=== PATIENT | male | born 1960 | race Caucasian/White ===

== ENCOUNTER → 2023-03-13 | Outpatient (CLI) | payer MEDICAID ==
[2023-03-13 13:23] LABS: ALBUMIN 3.6 G/DL (3.2-5.2); ALKALINE PHOSPHATASE 79 U/L (46-116); ALT/SGPT 22 U/L (7.0-40); AST/SGOT 12 U/L (<34); BILIRUBIN,TOTAL 0.6 MG/DL (0.3-1.2); BLOOD UREA NITROGEN 14 MG/DL (9-23); CALCIUM LEVEL 9.4 MG/DL (8.3-10.6); CARBON DIOXIDE LEVEL 26 MMOL/L (20-31); CHLORIDE LEVEL 105 MMOL/L (98-107); CREATININE FOR GFR 1.11 MG/DL (0.70-1.30); GLOMERULAR FILTRATION RATE > 60.0 (>49); GLUCOSE, FASTING 85 MG/DL (74-106); POTASSIUM SERUM 4.4 MMOL/L (3.5-5.1); SODIUM LEVEL 139 MMOL/L (136-145); TOTAL PROTEIN 7.1 G/DL (5.7-8.2)
[2023-03-13 13:27] LABS: HEPATITIS B SURFACE ANTIBODY NEGATIVE (POSITIVE)
[2023-03-13 13:40] LABS: HEPATITIS B SURFACE ANTIGEN NEGATIVE (NEGATIVE)
== END ==
LOC: M PLALAB 11:10
PROVIDERS: ATTEND Internal Medicine Infectious Disease
DX: B20 Human immunodeficiency virus [HIV] disease (principal)

== ENCOUNTER → 2023-07-06 | Outpatient (CLI) | payer BC, MEDICAID ==
[~2023-07-06] MED LIST: BIKT1TAB PO; FINA5TAB2 PO; LOSA50TA28 PO; METO1TAB87 PO; SILD50TA2 PO; SOFO1TAB PO; TAMS1CAP17 PO
== END ==
LOC: M ONCR 08:28
PROVIDERS: ATTEND General Practice
DX: C21.0 Malignant neoplasm of anus, unspecified (principal); R97.20 Elevated prostate specific antigen [PSA]; F17.210 Nicotine dependence, cigarettes, uncomplicated; B20 Human immunodeficiency virus [HIV] disease; Z71.2 Person consulting for explanation of examination or test findings; Z79.899 Other long term (current) drug therapy; Z88.8 Allergy status to other drugs, medicaments and biological substances

== ENCOUNTER 2023-07-30 10:22 | Outpatient (RCR) | payer BC, MEDICAID ==
[~2023-07-30 10:22] MED LIST changes: -LIDOCAINE 1% MDV 20ML VIAL As Ordered ONE; -LIDOCAINE W/EPINEPHRINE 1% 20ML VIAL As Ordered ONE; -MIDAZOLAM INJ 2MG/2ML VIAL As Ordered ONE; -NS 1,000 ML IV SCH; -ceFAZolin 2 GM/D5W 50 ML IV BAG As Ordered ONE; -ceFAZolin SOD 2 GM in IV 1 EA IV ONE; -fentaNYL 100 MCG/2 ML INJECTION As Ordered ONE
== END 2023-08-26 ==
LOC: M ONCR 10:22
PROVIDERS: ATTEND General Practice
DX: Z51.0 Encounter for antineoplastic radiation therapy (principal); C21.0 Malignant neoplasm of anus, unspecified

== ENCOUNTER → 2023-07-30 | Outpatient (CLI) | payer BC, MEDICAID ==
[~2023-07-30] VITALS: Ht 172.7 cm; Wt 73.0 kg
[~2023-07-30] MED LIST changes: +LIDOCAINE 1% MDV 20ML VIAL As Ordered ONE; +LIDOCAINE W/EPINEPHRINE 1% 20ML VIAL As Ordered ONE; +MIDAZOLAM INJ 2MG/2ML VIAL As Ordered ONE; +NS 1,000 ML IV SCH; +ceFAZolin 2 GM/D5W 50 ML IV BAG As Ordered ONE; +ceFAZolin SOD 2 GM in IV 1 EA IV ONE; +fentaNYL 100 MCG/2 ML INJECTION As Ordered ONE
[2023-07-30 13:05] VITALS: TEMP 98.1
[2023-07-30 15:50] VITALS: BP 112/69; O2SAT 97
== END ==
LOC: M IRPRO 12:51
PROVIDERS: ATTEND Internal Medicine Medical Oncology
DX: C21.0 Malignant neoplasm of anus, unspecified (principal)
CPT/HCPCS: 36571; 99152; 99153; J0690; J2250; J3010

== ENCOUNTER → 2023-09-11 | Outpatient (CLI) | payer BC, MEDICAID ==
[~2023-09-11] MED LIST changes: +AMOX875T2 PO; +ONDA-84 PO; +PROC10TA5 PO
== END ==
LOC: M ONCM 08:25
PROVIDERS: ATTEND Dietitian, Registered
DX: C21.0 Malignant neoplasm of anus, unspecified (principal); Z68.22 Body mass index [BMI] 22.0-22.9, adult; Z71.3 Dietary counseling and surveillance

== ENCOUNTER → 2023-09-20 | Outpatient (CLI) | payer BC, MEDICAID ==
[2023-09-20 14:38] LABS: ALKALINE PHOSPHATASE 79 U/L (46-116); ALT/SGPT 17 U/L (7.0-40); AST/SGOT 15 U/L (<34); BILIRUBIN,TOTAL 0.5 MG/DL (0.3-1.2); BLOOD UREA NITROGEN 22 MG/DL (9-23); CALCIUM LEVEL 8.7 MG/DL (8.3-10.6); CARBON DIOXIDE LEVEL 30 MMOL/L (20-31); CHLORIDE LEVEL 106 MMOL/L (98-107); CREATININE FOR GFR 1.03 MG/DL (0.70-1.30); GLOMERULAR FILTRATION RATE > 60.0 (>49); GLUCOSE, FASTING 100 MG/DL (74-106); POTASSIUM SERUM 4.2 MMOL/L (3.5-5.1); SODIUM LEVEL 141 MMOL/L (136-145); TOTAL PROTEIN 6.1 G/DL (5.7-8.2)
[2023-09-20 14:43] LABS: HEPATITIS B SURFACE ANTIBODY NEGATIVE (POSITIVE)
[2023-09-21 19:13] LABS: % CD8 Pos Lymph 33.3 % (12.0-35.5); ABS Eosinophils 0.1 x10E3/uL (0.0-0.4); ABS Lymphs 0.5 x10E3/uL (0.7-3.1); ABS Monocytes 0.3 x10E3/uL (0.1-0.9); ABS Neutophils 1.6 x10E3/uL (1.4-7.0); Abs CD4 Helper 220 /uL (359-1519); Abs CD8 Suppres 167 /uL (109-897); CD4/CD8 Ratio 1.32 (0.92-3.72); Eosinophils 4 % (Not Estab.); HCT 39.5 % (37.5-51.0); HEPATITIS C QUANTITATION HCV Not Detected IU/mL (.); HGB 12.9 g/dL (13.0-17.7); HIV-1 RNA PCR QUANT 2 LC550285 <20 copies/mL (.); Immature Grans 0 % (Not Estab.); Lymphocytes 21 % (Not Estab.); MCH 26.5 pg (26.6-33.0); MCHC 32.7 g/dL (31.5-35.7); MCV 81 fL (79-97); Monocytes 11 % (Not Estab.); Neutrophils 63 % (Not Estab.); Platelets 135 x10E3/uL (150-450); RBC 4.87 x10E6/uL (4.14-5.80); RDW 13.4 % (11.6-15.4); TESTOSTERONE FREE (DIRECT) 4.8 pg/mL (6.6-18.1); WBC 2.6 x10E3/uL (3.4-10.8)
== END ==
LOC: M PLALAB 09:55
PROVIDERS: ATTEND Internal Medicine Infectious Disease
DX: N52.9 Male erectile dysfunction, unspecified (principal)

== ENCOUNTER → 2023-09-26 | Outpatient (RCR) | payer BC, MEDICAID | LOC: M ONCR 08-28 15:32 | PROVIDERS: ATTEND General Practice | DX: Z51.0 Encounter for antineoplastic radiation therapy (principal); C21.0 Malignant neoplasm of anus, unspecified ==

== ENCOUNTER → 2023-10-09 | Outpatient (CLI) | payer BC, MEDICAID ==
[~2023-10-09] MED LIST changes: +BUSP5TA PO; +CITA20TA6 PO; +REGL10TA6 PO
== END ==
LOC: M ONCM 11:54
PROVIDERS: ATTEND Dietitian, Registered
DX: C21.0 Malignant neoplasm of anus, unspecified (principal); Z71.3 Dietary counseling and surveillance; Z68.23 Body mass index [BMI] 23.0-23.9, adult

== ENCOUNTER 2023-10-19 20:11 | Emergency (ER) | payer BC, MEDICAID ==
[~2023-10-19] VITALS: Ht 172.7 cm; Wt 67.3 kg
[~2023-10-19 20:11] MED LIST changes: +LIDO15SO PO; +NYST-38 PO; +NYST100085 TOP; +TRAM50TA2 PO
[2023-10-19] MEDS: NS 1,000 ML IV ONE (21:09)
[2023-10-19] MEDS: ACETAMINOPHEN TAB 650MG DOSE (2X325MG) PO ONE (21:09)
[2023-10-19 21:16] LABS: BASO % 0.4 % (0.0-1.0); EOS # 0.2 10^3/uL (0.0-0.5); EOS % 7.2 % (0.0-3.0); HEMATOCRIT 33.2 % (42.0-52.0); HEMOGLOBIN 11.3 g/dl (13.5-17.5); LYMPH # 0.1 10^3/uL (1.5-5.0); LYMPH % 4.9 % (24.0-44.0); MEAN CORPUSCULAR HEMOGLOBIN 27.4 pg (27.0-33.0); MEAN CORPUSCULAR VOLUME 80.6 fl (80.0-96.0); MONO # 0.4 10^3/uL (0.0-0.8); MONO % 16.7 % (2.0-8.0); NEUTROPHILS # 1.9 10^3/uL (1.5-8.5); NEUTROPHILS % 70.4 % (36.0-66.0); PLATELET COUNT, AUTOMATED 109 10^3/uL (150-450); RED BLOOD COUNT 4.12 10^6/uL (4.30-6.10); WHITE BLOOD COUNT 2.6 10^3/uL (4.0-10.0)
[2023-10-19 21:36] LABS: LIPASE 32 U/L (12-53)
[2023-10-19 21:38] LABS: ALBUMIN 2.8 G/DL (3.2-5.2); ALKALINE PHOSPHATASE 69 U/L (46-116); ALT/SGPT 16 U/L (7.0-40); AST/SGOT 14 U/L (<34); BILIRUBIN,DIRECT 0.3 MG/DL (<0.4); BILIRUBIN,TOTAL 0.8 MG/DL (0.3-1.2); BLOOD UREA NITROGEN 10 MG/DL (9-23); CARBON DIOXIDE LEVEL 25 MMOL/L (20-31); CHLORIDE LEVEL 102 MMOL/L (98-107); GLOMERULAR FILTRATION RATE > 60.0 (>49); GLUCOSE, FASTING 104 MG/DL (74-106); POTASSIUM SERUM 3.8 MMOL/L (3.5-5.1); SODIUM LEVEL 132 MMOL/L (136-145); TOTAL PROTEIN 5.8 G/DL (5.7-8.2)
[2023-10-20 00:56] VITALS: BP 124/78; TEMP 98.8; O2SAT 98
[2023-10-20] MEDS ORDERED: CIPR-249 PO (00:57)
[2023-10-20] MEDS: CIPROFLOXACIN 500MG TABLET PO ONE (01:01)
== END 2023-10-20 01:06 | disposition home or self-care (01) ==
LOC: M ED 20:11
DX: A04.5 Campylobacter enteritis (principal); R50.9 Fever, unspecified; I10 Essential (primary) hypertension; B20 Human immunodeficiency virus [HIV] disease; B17.9 Acute viral hepatitis, unspecified; F32.A Depression, unspecified; Z88.8 Allergy status to other drugs, medicaments and biological substances; Z79.899 Other long term (current) drug therapy

== ENCOUNTER 2023-10-22 08:59 | Outpatient (RCR) | payer BC, MEDICAID ==
[2023-10-16] MEDS: dexAMETHasone 20MG/5ML VIAL IV ONE (09:53)
[2023-10-16] MEDS: NS 1,000 ML IV ONE ×2 (09:53→10:51)
[~2023-10-22 08:59] MED LIST changes: +CIPR-249 PO
== END 2023-10-25 ==
LOC: M ONCR 08:59
PROVIDERS: ATTEND General Practice
DX: Z51.0 Encounter for antineoplastic radiation therapy (principal); C21.0 Malignant neoplasm of anus, unspecified
CPT/HCPCS: 77336; 77386; J1100

== ENCOUNTER → 2023-11-13 | Outpatient (CLI) | payer BC, MEDICAID ==
[~2023-11-13] MED LIST changes: -LIDO15SO PO; +LIDO15SO8 PO
== END ==
LOC: M ONCR 09:08
PROVIDERS: ATTEND General Practice
DX: C21.0 Malignant neoplasm of anus, unspecified (principal)

== ENCOUNTER → 2024-01-16 | Outpatient (CLI) | payer BC, MEDICAID ==
[~2024-01-16] MED LIST changes: +GASTROGRAFIN SOLUTION 30ML As Ordered ONE; +ISOVUE-370 76% 100ML VIAL As Ordered ONE
== END ==
LOC: M RAD 08:21
PROVIDERS: ATTEND General Practice
DX: C21.0 Malignant neoplasm of anus, unspecified (principal)

== ENCOUNTER → 2024-01-23 | Outpatient (CLI) | payer BC, MEDICAID ==
[~2024-01-23] MED LIST changes: +BACTDSTA PO; -GASTROGRAFIN SOLUTION 30ML As Ordered ONE; -ISOVUE-370 76% 100ML VIAL As Ordered ONE
== END ==
LOC: M ONCR 08:58
PROVIDERS: ATTEND General Practice
DX: C21.0 Malignant neoplasm of anus, unspecified (principal); N39.41 Urge incontinence; R39.12 Poor urinary stream; N40.1 Benign prostatic hyperplasia with lower urinary tract symptoms; L03.011 Cellulitis of right finger; B20 Human immunodeficiency virus [HIV] disease; Z71.2 Person consulting for explanation of examination or test findings; Z79.899 Other long term (current) drug therapy; Z87.891 Personal history of nicotine dependence; Z88.8 Allergy status to other drugs, medicaments and biological substances; Z92.21 Personal history of antineoplastic chemotherapy; Z92.3 Personal history of irradiation

== ENCOUNTER → 2024-02-19 | Outpatient (CLI) | payer BC, MEDICAID ==
[2024-02-20 10:11] LABS: % CD4+ LYMPHS 23.6 % (30.8-58.5); ABSOLUTE CD4 HELPER 165 /uL (359-1519); BASOPHILS 1 % (Not Estab.); BASOPHILS ABSOLUTE 0.1 x10E3/uL (0.0-0.2); EOSINOPHILS 4 % (Not Estab.); EOSINOPHILS ABSOLUTE 0.2 x10E3/uL (0.0-0.4); HCT 36.7 % (37.5-51.0); HGB 11.9 g/dL (13.0-17.7); LYMPHOCYTES 13 % (Not Estab.); LYMPHOCYTES ABSOLUTE 0.7 x10E3/uL (0.7-3.1); MCH 25.7 pg (26.6-33.0); MCHC 32.4 g/dL (31.5-35.7); MCV 79 fL (79-97); MONOCYTES 15 % (Not Estab.); MONOCYTES ABSOLUTE 0.8 x10E3/uL (0.1-0.9); NEUTROPHILS 67 % (Not Estab.); NEUTROPHILS ABSOLUTE 3.6 x10E3/uL (1.4-7.0); PLT 226 x10E3/uL (150-450); RBC 4.63 x10E6/uL (4.14-5.80); RDW 13.8 % (11.6-15.4); WBC 5.3 x10E3/uL (3.4-10.8)
[2024-02-20 12:53] LABS: HCV RNA QUANTITATION <15 NOT DETECTED IU/mL (NOT DETECTED); HCV RNA log10 <1.18 NOT DETECTED Log IU/mL (NOT DETECTED)
[2024-02-20 14:27] LABS: HIV-1 RNA PCR QUANT 2 NOT DETECTED copies/mL (NOT DETECTED); HIV-1 RNA PCR QUANT 3 NOT DETECTED (NOT DETECTED)
== END ==
LOC: M PLALAB 09:34
PROVIDERS: ATTEND Internal Medicine Infectious Disease
DX: B20 Human immunodeficiency virus [HIV] disease (principal)

== ENCOUNTER → 2024-03-20 | Outpatient (CLI) | payer BC, MEDICAID ==
[~2024-03-20] MED LIST changes: +KETOROLAC 30 MG/ML 1ML VIAL As Ordered ONE; +LIDOCAINE 1% MDV 20ML VIAL As Ordered ONE; +MIDAZOLAM INJ 2MG/2ML VIAL As Ordered ONE; +NS 1,000 ML IV SCH; +ceFAZolin 2 GM/D5W 50 ML IV BAG As Ordered ONE; +ceFAZolin SOD 2 GM in IV 1 EA IV ONE; +fentaNYL 100 MCG/2 ML INJECTION As Ordered ONE
[2024-03-20 14:25] VITALS: TEMP 97.7
[2024-03-20 15:42] VITALS: BP 176/78; O2SAT 99
== END ==
LOC: M IRPRO 13:58
PROVIDERS: ATTEND Internal Medicine Medical Oncology
DX: C21.0 Malignant neoplasm of anus, unspecified (principal)
CPT/HCPCS: 36590; J0690; J1885; J2250; J3010

== ENCOUNTER → 2024-04-24 | Outpatient (CLI) | payer BC, MEDICAID ==
[~2024-04-24] MED LIST changes: -KETOROLAC 30 MG/ML 1ML VIAL As Ordered ONE; -LIDOCAINE 1% MDV 20ML VIAL As Ordered ONE; -MIDAZOLAM INJ 2MG/2ML VIAL As Ordered ONE; -NS 1,000 ML IV SCH; -ceFAZolin 2 GM/D5W 50 ML IV BAG As Ordered ONE; -ceFAZolin SOD 2 GM in IV 1 EA IV ONE; -fentaNYL 100 MCG/2 ML INJECTION As Ordered ONE
== END ==
LOC: M ONCR 08:31
PROVIDERS: ATTEND General Practice
DX: C21.0 Malignant neoplasm of anus, unspecified (principal); K62.7 Radiation proctitis; W88.8XXA Exposure to other ionizing radiation, initial encounter; B20 Human immunodeficiency virus [HIV] disease; Z87.891 Personal history of nicotine dependence; Z79.899 Other long term (current) drug therapy; Z88.8 Allergy status to other drugs, medicaments and biological substances; Z92.21 Personal history of antineoplastic chemotherapy; Z92.3 Personal history of irradiation

== ENCOUNTER → 2024-07-29 | Outpatient (CLI) | payer BC ==
[~2024-07-29] MED LIST changes: +ISOVUE-370 76% 100ML VIAL As Ordered ONE
== END ==
LOC: M RAD 09:28
PROVIDERS: ATTEND General Practice
DX: C21.0 Malignant neoplasm of anus, unspecified (principal)

== ENCOUNTER → 2024-08-05 | Outpatient (CLI) | payer BC ==
[~2024-08-05] MED LIST changes: -ISOVUE-370 76% 100ML VIAL As Ordered ONE
== END ==
LOC: M ONCR 16:03
PROVIDERS: ATTEND General Practice
DX: C21.0 Malignant neoplasm of anus, unspecified (principal); Z96.0 Presence of urogenital implants

== ENCOUNTER → 2024-10-13 | Outpatient (CLI) | payer BC ==
[2024-10-13 17:16] LABS: GC DNA AMPLIFICATION NEGATIVE (NEGATIVE)
[2024-10-13 17:36] LABS: ALBUMIN 3.9 G/DL (3.2-5.2); ALKALINE PHOSPHATASE 79 U/L (40-129); ALT/SGPT 21 U/L (7.0-40); AST/SGOT 23 U/L (<34); BILIRUBIN,TOTAL 0.8 MG/DL (0.3-1.2); BLOOD UREA NITROGEN 27 MG/DL (9-23); CALCIUM LEVEL 9.9 MG/DL (8.3-10.6); CARBON DIOXIDE LEVEL 29 MMOL/L (20-31); CHLORIDE LEVEL 104 MMOL/L (98-107); CREATININE FOR GFR 1.04 MG/DL (0.70-1.30); GLOMERULAR FILTRATION RATE > 60.0 (>49); GLUCOSE, FASTING 90 MG/DL (74-106); POTASSIUM SERUM 4.2 MMOL/L (3.5-5.1); SODIUM LEVEL 142 MMOL/L (136-145); TOTAL PROTEIN 7.4 G/DL (5.7-8.2)
[2024-10-14 15:07] LABS: % CD4+ LYMPHS 27.7 % (30.8-58.5); ABSOLUTE CD4 HELPER 249 /uL (359-1519); BASOPHILS 1 % (Not Estab.); BASOPHILS ABSOLUTE 0.1 x10E3/uL (0.0-0.2); EOSINOPHILS 3 % (Not Estab.); EOSINOPHILS ABSOLUTE 0.2 x10E3/uL (0.0-0.4); HCT 40.8 % (37.5-51.0); HGB 13.3 g/dL (13.0-17.7); LYMPHOCYTES 15 % (Not Estab.); LYMPHOCYTES ABSOLUTE 0.9 x10E3/uL (0.7-3.1); MCH 25.9 pg (26.6-33.0); MCHC 32.6 g/dL (31.5-35.7); MCV 80 fL (79-97); MONOCYTES 13 % (Not Estab.); MONOCYTES ABSOLUTE 0.8 x10E3/uL (0.1-0.9); NEUTROPHILS 68 % (Not Estab.); NEUTROPHILS ABSOLUTE 3.9 x10E3/uL (1.4-7.0); PLT 256 x10E3/uL (150-450); RBC 5.13 x10E6/uL (4.14-5.80); RDW 15.4 % (11.6-15.4); WBC 5.7 x10E3/uL (3.4-10.8)
== END ==
LOC: M PLALAB 12:40
PROVIDERS: ATTEND Internal Medicine Infectious Disease
DX: B20 Human immunodeficiency virus [HIV] disease (principal)

== ENCOUNTER 2024-10-22 11:03 | Day surgery (SDC) | payer BC ==
[~2024-10-22] VITALS: Ht 172.7 cm; Wt 64.7 kg
[~2024-10-22 11:03] MED LIST changes: +BUPR75TA5 PO; +FLOM0.4C39 PO; +IRON65TA2 PO; +LOSA50TA5 PO; +MULT-90 PO
[2024-10-22] MEDS ORDERED: propofoL 200 MG/20 ML VIAL As Ordered ONE (12:50)
[2024-10-22] MEDS ORDERED: LIDOCAINE 2% 100MG/5ML SDV (FOR ANES.) As Ordered ONE (12:50)
[2024-10-22 13:07] VITALS: TEMP 97.8
[2024-10-22 13:22] VITALS: BP 157/88; O2SAT 100
== END 2024-10-22 13:31 | disposition home or self-care (01) ==
LOC: M OPP 11:03
PROVIDERS: ATTEND Surgery
DX: K62.7 Radiation proctitis (principal); C20 Malignant neoplasm of rectum; I10 Essential (primary) hypertension; E78.00 Pure hypercholesterolemia, unspecified; F41.9 Anxiety disorder, unspecified; F32.A Depression, unspecified; J45.909 Unspecified asthma, uncomplicated; Z88.8 Allergy status to other drugs, medicaments and biological substances; Z79.899 Other long term (current) drug therapy

== ENCOUNTER 2025-04-02 21:32 | Inpatient (IN) | payer BC ==
[~2025-04-02] VITALS: Ht 167.6 cm; Wt 81.0 kg
[~2025-04-02 21:32] MED LIST changes: -FLOM0.4C39 PO; +TAMS-18 PO
[2025-04-02 22:22] LABS: PLATELET COUNT, AUTOMATED 231 10^3/uL (150-450)
[2025-04-02 22:52] LABS: BARBITURATES URINE NEGATIVE (NEGATIVE); BENZODIAZEPINES URINE NEGATIVE (NEGATIVE); CANNABINOIDS URINE NEGATIVE (NEGATIVE); COCAINE METABOLITE URINE NEGATIVE (NEGATIVE); METHADONE URINE NEGATIVE (NEGATIVE); OPIATES URINE NEGATIVE (NEGATIVE); PHENCYCLIDINE URINE NEGATIVE (NEGATIVE)
[2025-04-02 22:53] LABS: AMPHETAMINES LEVEL URINE POSITIVE (NEGATIVE)
[2025-04-02 23:08] LABS: ETHYL ALCOHOL (ETHANOL) 0.004 % (0.000-0.010)
[2025-04-02 23:10] LABS: ALT/SGPT 21 U/L (7.0-40); AST/SGOT 29 U/L (<34); CALCIUM LEVEL 9.9 MG/DL (8.3-10.6); CARBON DIOXIDE LEVEL 28 MMOL/L (20-31); CHLORIDE LEVEL 102 MMOL/L (98-107); CREATININE FOR GFR 1.24 MG/DL (0.70-1.30); GLOMERULAR FILTRATION RATE 65.7 (>49); POTASSIUM SERUM 4.7 MMOL/L (3.5-5.1); SALICYLATE LEVEL < 3.0 MG/DL (<30); SODIUM LEVEL 141 MMOL/L (136-145)
[2025-04-02] MEDS ORDERED: ACETAMINOPHEN 325 MG TAB PO PRN (23:35)
[2025-04-02] MEDS ORDERED: MOM 30 ML SUSPENSION UDC PO PRN (23:35)
[2025-04-02] MEDS ORDERED: MAALOX 30 ML SUSP *UDC PO PRN (23:35)
[2025-04-02] MEDS ORDERED: traZODone 50 MG TAB PO PRN (23:35)
[2025-04-02] MEDS ORDERED: IBUPROFEN 400 MG TAB PO PRN (23:35)
[2025-04-02] MEDS ORDERED: MED REC COMMENT (23:38)
[2025-04-02] MEDS ORDERED: BUPR-670 PO (23:38)
[2025-04-02] MEDS ORDERED: CITA40TA7 PO (23:38)
[2025-04-02] MEDS ORDERED: HOME MED LIST COMPLETE! XX SCH (23:40)
[2025-04-03 00:54] VITALS: BP 103/58; TEMP 97.6; O2SAT 96
[2025-04-03] MEDS: FINASTERIDE 5 MG TAB PO SCH (08:41)
[2025-04-03] MEDS: FERROUS SULFATE 325 MG TAB PO SCH (08:41)
[2025-04-03] MEDS: busPIRone 5 MG TAB PO SCH (08:41)
[2025-04-03 09:00] VITALS: BP 104/70
[2025-04-03] MEDS: LOSARTAN 50 MG TABLET PO SCH (09:00)
[2025-04-03 15:17] VITALS: BP 118/77; TEMP 97.9; O2SAT 98
[2025-04-03] MEDS: TENOFOVIR ALAFENAMIDE PO SCH (20:54)
[2025-04-03] MEDS: BICTEGRAVIR PO SCH (20:54)
[2025-04-03] MEDS: EMTRICITABINE PO SCH (20:54)
[2025-04-04 06:38] VITALS: BP 108/54; TEMP 98; O2SAT 97
[2025-04-04 14:56] VITALS: BP 123/83; TEMP 97.6; O2SAT 98
[2025-04-05 06:40] VITALS: BP 154/86; TEMP 97.9; O2SAT 99
[2025-04-05 15:27] VITALS: BP 144/85; TEMP 98.4; O2SAT 98
[2025-04-06 06:33] VITALS: BP 148/88; TEMP 97.4; O2SAT 98
== END 2025-04-06 13:04 | disposition home or self-care (01) | DRG 753 ==
LOC: M ED 21:32 → M ED INP 23:35 → M PSY 04-03 00:21
PROVIDERS: ADMIT Student in an Organized Health Care Education/Training Program; ATTEND Psychiatry & Neurology Psychiatry
DX: F39 Unspecified mood [affective] disorder (principal); F15.20 Other stimulant dependence, uncomplicated; R45.851 Suicidal ideations; N40.0 Benign prostatic hyperplasia without lower urinary tract symptoms; I10 Essential (primary) hypertension; J45.909 Unspecified asthma, uncomplicated; D64.9 Anemia, unspecified; Z79.899 Other long term (current) drug therapy; Z88.8 Allergy status to other drugs, medicaments and biological substances

== ENCOUNTER → 2025-05-08 | Outpatient (CLI) | payer MEDICAID ==
[~2025-05-08] MED LIST changes: +BUPR-670 PO; +CITA40TA7 PO; +MED REC COMMENT
== END ==
LOC: M ONCR 14:39
PROVIDERS: ATTEND General Practice
DX: Z08 Encounter for follow-up examination after completed treatment for malignant neoplasm (principal); Z85.048 Personal history of other malignant neoplasm of rectum, rectosigmoid junction, and anus; B20 Human immunodeficiency virus [HIV] disease; Z87.891 Personal history of nicotine dependence; Z92.21 Personal history of antineoplastic chemotherapy; Z92.3 Personal history of irradiation; Z88.8 Allergy status to other drugs, medicaments and biological substances; Z79.899 Other long term (current) drug therapy

== ENCOUNTER → 2025-08-13 | Outpatient (CLI) | payer OTHER ==
[~2025-08-13] MED LIST changes: -BACTDSTA PO; +BUPR-363 PO; -BUPR75TA5 PO; +SULF-8 PO
[2025-08-13 12:55] LABS: APPEARANCE, URINE CLEAR (CLEAR); BACTERIA, URINE AUTO NEGATIVE (NEGATIVE); BILIRUBIN, URINE AUTO NEGATIVE (NEGATIVE); BLOOD, URINE BLOOD NEGATIVE (NEGATIVE); GLUCOSE, URINE (UA) AUTO NEGATIVE (NEGATIVE); KETONE, URINE AUTO NEGATIVE (NEGATIVE); LEUKOCYTE ESTERASE, URINE AUTO NEGATIVE (NEGATIVE); MUCUS, URINE SMALL (NEGATIVE); NITRITE, URINE AUTO NEGATIVE (NEGATIVE); PROTEIN, URINE AUTO NEGATIVE (NEGATIVE); RBC, URINE AUTO 1 /HPF (0-3); SPECIFIC GRAVITY URINE AUTO 1.021 (1.002-1.035); SQUAMOUS EPITHELIAL CELL UR AU 0 /HPF (0-6); UROBILINOGEN, URINE AUTO 0.2 mg/dL (0.0-2.0); WBC, URINE AUTO 1 /HPF (0-3)
[2025-08-13 14:30] LABS: GC DNA AMPLIFICATION NEGATIVE (NEGATIVE)
[2025-08-13 15:44] LABS: PLATELET COUNT, AUTOMATED 230 10^3/uL (150-450)
[2025-08-13 15:52] LABS: ALT/SGPT 18 U/L (7.0-40); AST/SGOT 18 U/L (<34); CALCIUM LEVEL 9.6 MG/DL (8.3-10.6); CARBON DIOXIDE LEVEL 29 MMOL/L (20-31); CHLORIDE LEVEL 105 MMOL/L (98-107); CREATININE FOR GFR 1.16 MG/DL (0.70-1.30); GLOMERULAR FILTRATION RATE 71.2 (>49); POTASSIUM SERUM 4.7 MMOL/L (3.5-5.1); SODIUM LEVEL 140 MMOL/L (136-145)
[2025-08-13 15:59] LABS: HEPATITIS B SURFACE ANTIBODY POSITIVE (POSITIVE)
[2025-08-16 16:43] LABS: % CD4 26 % (30-61); %CD8 35 % (12-42); ABSOLUTE CD4 CELLS 317 cells/uL (490-1740); ABSOLUTE CD8 CELLS 439 cells/uL (180-1170); ABSOLUTE LYMPHOCYTES 1241 cells/uL (850-3900); CD4 CD8 RATIO 0.72 (0.86-5.00)
== END ==
LOC: M PLALAB 11:20
PROVIDERS: ATTEND Internal Medicine Infectious Disease
DX: B20 Human immunodeficiency virus [HIV] disease (principal); B18.2 Chronic viral hepatitis C; Z11.3 Encounter for screening for infections with a predominantly sexual mode of transmission